=== PATIENT | female | born 1945 | race Caucasian/White ===

== ENCOUNTER 2018-11-17 08:06 | Day surgery (SDC) | payer MEDICARE ==
[2018-11-16 11:46] VITALS: BMI 24.7
[2018-11-17] MEDS ORDERED: Oxymetazoline HCl 0.05% ( 15 ML ) ONE ×2 (09:28→10:23)
[2018-11-17 09:38] LABS: Hemoglobin 11.7 g/dL (12.0-16.0)
[2018-11-17 09:52] LABS: Anion Gap 11 mmol/L (10-20); BUN (Urea Nitrogen) 11 mg/dL (9.8-20.1); Calc. Creatinine Clearance 51 mL/min (70-130); Calcium 9.6 mg/dL (7.8-10.44); Carbon Dioxide 29 mmol/L (23-31); Chloride 99 mmol/L (98-107); Estimated GFR-MDRD 59; Glucose 85 mg/dL (83-110); Potassium 3.9 mmol/L (3.5-5.1); Sodium 135 mmol/L (136-145)
[2018-11-17] MEDS ORDERED: Lidocaine 1% w/Epinephrine 1:100K 20 ML VIAL ONE (10:23)
[2018-11-17] MEDS ORDERED: Fentanyl 100 MCG/2 ML VIAL ONE (10:30)
[2018-11-17] MEDS ORDERED: Ophthalmic Irrigation Solution 15 ML ONE (11:34)
--- NOTE | 2018-11-18 09:01 | OP ---
DATE OF PROCEDURE: 11/17/2018 PREOPERATIVE DIAGNOSES: 1. Chronic rhinosinusitis. 2. Allergic fungal sinusitis. 3. Nasal polyposis. 4. Bilateral inferior turbinate hypertrophy. 5. Nasal obstruction. POSTOPERATIVE DIAGNOSES: 1. Chronic rhinosinusitis. 2. Allergic fungal sinusitis. 3. Nasal polyposis. 4. Bilateral inferior turbinate hypertrophy. 5. Nasal obstruction. PROCEDURES PERFORMED: 1. Bilateral endoscopic sinus surgery, frontal sinusotomy with removal of tissue. 2. Bilateral endoscopic sinus surgery, sphenoidotomies with removal of tissue. 3. Left endoscopic sinus surgery with removal of tissue. 4. Bilateral inferior turbinate submucosal resection. 5. Stereotactic image guided sinus surgery. ESTIMATED BLOOD LOSS: 50 mL. COMPLICATIONS: None. ANESTHESIA: GETA. DESCRIPTION OF PROCEDURE: The patient was taken to the operating room, placed supine on the table. General endotracheal anesthesia was obtained by the Anesthesia staff. Tube was secured in the left lower lip. The patient was then placed in the beach chair position. Afrin pledgets placed in the nasal cavity as the patient was prepped and draped for standard nasal procedure. Following this, landmark image guided system was set up and calibrated. It was noted to be within 1 mm of accuracy. Following this, a 0-degree endoscope was advanced in the nasal cavity. This previous ethmoidectomies and maxillary antrostomies have been performed on the left side. There was complete scarring of the maxillary sinus ostia and polypoid changes that had completely obstructed this area. The 40-degree microdebrider blade was used to reopen the left maxillary sinus ostia and removed tissue as well as nasal polyps throughout the left maxillary sinus. There was allergic fungal debris noted within the sinus as well. Following this, the 0-degree endoscope was advanced to the posterior nasal wall with the attachment of the superior turbinate to the posterior nasal wall was identified bilaterally. Following this, staying just medial and inferior to this, the anterior face of the sphenoid was confirmed bilaterally using the image guided system. The sphenoid puncture was made into this area. On both sides, the sphenoid sinuses had thickened osteitic bone, which was removed using the 0-degree microdebrider under image guided surveillance technique. Allergic fungal debris was removed from the right sphenoid sinus as well as nasal polyps. Following this, the 45-degree endoscope and the curved microdebrider blade were used to examine the anterior ethmoidal cells, where nasal polyps that were noted to be regrown and obliterating the frontal sinus ostia bilaterally. These nasal polyps were removed and bone was removed in this area, therefore widening the frontal sinus ostia bilaterally. Following this, the nasal cavity was irrigated. Mirapex was placed within the middle meatus. Inferior turbinates were then punctured on the anterior and inferior aspect using the submucosal microdebrider and submucosal resection was performed of the anterior and inferior portions of the inferior turbinates bilaterally. The patient tolerated the procedure well. Job ID: [id number]
== END 2018-11-17 14:05 | disposition home or self-care (01) ==
LOC: SDC 08:06
PROVIDERS: ATTEND Otolaryngology Plastic Surgery within the Head & Neck
PROC: 09TL8ZZ Resection of Nasal Turbinate, Via Natural or Artificial Opening Endoscopic (ICD-10-PCS; principal; 2018-11-17)
PROC: 099R8ZZ Drainage of Left Maxillary Sinus, Via Natural or Artificial Opening Endoscopic (ICD-10-PCS; 2018-11-17)
DX: J34.3 Hypertrophy of nasal turbinates (principal); J32.9 Chronic sinusitis, unspecified; J30.89 Other allergic rhinitis; J33.9 Nasal polyp, unspecified; J34.89 Other specified disorders of nose and nasal sinuses; Z79.51 Long term (current) use of inhaled steroids; Z79.899 Other long term (current) drug therapy
CPT/HCPCS: 36415; 80048; 85014; 85018; J0131; J2001; J3010